=== PATIENT | male | born 1955 | race Caucasian/White ===

== ENCOUNTER 2017-07-23 14:12 | Emergency (ER) | payer OTHER ==
[2017-07-23] MEDS ORDERED: LIDOCAINE 1% INJ-PF (10 MG/ML) 30 ML SDV INJ ONE (14:46)
--- NOTE | 2017-07-23 14:47 | ER Document Report ---
ED Wound - General Chief Complaint: Laceration Stated Complaint: FALL HEAD INJURY Time Seen by Provider: 07/23/17 14:23 Mode of Arrival: Medic Information source: Patient Notes: Patient is a 41-year-old male who presents to the ER today after fall from a stepladder while at work prior to arrival. Patient states that he was getting down from the stepladder" must have dismissed that last step." Patient fell backwards, catching himself with his feet, however then fell to the right, hitting his head on the floor. Patient did try to catch himself but states that he thinks his head hit first. He is not on any blood thinners and denies any loss of consciousness, nausea, vomiting, blurred vision or any other neurological symptoms. TRAVEL OUTSIDE OF THE [place] IN LAST 30 DAYS: No - Related Data Allergies/Adverse Reactions: Penicillins Allergy (Verified 06/14/13 17:18) Past Medical History - General Information source: Patient - Social History Smoking Status: Current Some Day Smoker Chew tobacco use (# tins/day): No Frequency of alcohol use: None Drug Abuse: None Family History: None Malignancy Medical History: Reports Hx Skin Cancer Past Surgical History: Reports: Hx Orthopedic Surgery - back - Immunizations Hx Diphtheria, Pertussis, Tetanus Vaccination: Yes Review of Systems - Review of Systems Constitutional: No symptoms reported EENT: No symptoms reported Cardiovascular: No symptoms reported Respiratory: No symptoms reported Gastrointestinal: No symptoms reported Genitourinary: No symptoms reported Male Genitourinary: No symptoms reported Musculoskeletal: See HPI Skin: See HPI Hematologic/Lymphatic: No symptoms reported Neurological/Psychological: No symptoms reported Physical Exam - Vital signs Vitals: Temp Pulse Resp BP Pulse Ox 98.4 F 80 15 142/92 H 95 07/23/17 14:21 07/23/17 14:21 07/23/17 14:21 07/23/17 14:21 07/23/17 14:21 - Notes Notes: PHYSICAL EXAMINATION: GENERAL: Well-appearing and in no acute distress. HEAD: Dried blood to right occipital scalp, normocephalic. EYES: Pupils equal round and reactive to light, extraocular movements intact, sclera anicteric, conjunctiva are normal. ENT: ear canals without erythema or foreign body, TMs pearly chester with good bony landmarks, nares patent, oropharynx clear without exudates. Moist mucous membranes. NECK: Normal range of motion, supple without lymphadenopathy LUNGS: CTAB and equal. No wheezes rales or rhonchi. HEART: Regular rate and rhythm without murmurs ABDOMEN: Soft, no tenderness. No guarding, no rebound BACK: no vertebral tenderness, normal ROM GI/: no CVA tenderness EXTREMITIES: Normal range of motion, no pitting edema. No cyanosis. NEUROLOGICAL: Cranial nerves grossly intact. Normal sensory/motor exams. PSYCH: Normal mood, normal affect. SKIN: Warm, Dry, normal turgor, 5 cm linear laceration to the right occipital scalp, dried blood, no active bleeding, small hematoma Course - Vital Signs Vital signs: Temp Pulse Resp BP Pulse Ox 97.8 F 72 16 120/77 97 07/23/17 16:25 07/23/17 16:25 07/23/17 16:25 07/23/17 16:25 07/23/17 16:25 Procedures - Laceration/Wound Repair Right Head Time completed: 03:55 Wound length (cm): 5 Wound's Depth, Shape: Superficial, Linear Laceration pre-procedure: Sterile PPE donned, Shur-Clens applied Anesthetic type: 1% Lidocaine Volume Anesthetic (mLs): 5 Wound explored: Clean Irrigated w/ Saline (mLs): 40 Wound Repaired With: Nina Number of Sutures: 6 Post-procedure NV exam normal: Yes Complications: No Discharge - Discharge Clinical Impression: Laceration of scalp Qualifiers: Encounter type: initial encounter Qualified Code(s): S01.01XA - Laceration without foreign body of scalp, initial encounter Condition: Stable Disposition: HOME, SELF-CARE Instructions: Laceration Care ([facility]) Additional Instructions: Return immediately for any new or worsening symptoms. Follow up with primary care provider, call tomorrow to make followup appointment. Be seen in 7 days to have nina removed. You can go to an urgent care or go to your family doctor or return here. Forms: Return to Work
[2017-07-23 16:30] VITALS: BP 120/77
== END 2017-07-23 16:51 | disposition home or self-care (01) ==
LOC: ER 14:12
PROC: 0HQ0XZZ Repair Scalp Skin, External Approach (ICD-10-PCS; principal; 2017-07-23)
DX: S01.01XA Laceration without foreign body of scalp, initial encounter (principal); W11.XXXA Fall on and from ladder, initial encounter; F17.200 Nicotine dependence, unspecified, uncomplicated
CPT/HCPCS: 99283